=== PATIENT | female | born 1995 | race Caucasian/White ===

== ENCOUNTER 2019-01-02 16:32 | Outpatient (CLI) | payer MEDICAID ==
[2019-01-02 17:53] LABS: ADD UMIC NO; UR ASCORBIC ACID NEGATIVE (NEGATIVE); UR BILIRUBIN (Dip) NEGATIVE (NEGATIVE); UR BLOOD (Dip) NEGATIVE (NEGATIVE); UR CLARITY SLIGHTLY CLOUDY (CLEAR); UR COLOR YELLOW (YELLOW); UR GLUCOSE (Dip) NEGATIVE (NEGATIVE); UR KETONES (Dip) NEGATIVE (NEGATIVE); UR LEUKOCYTE ESTERASE (Dip) NEGATIVE Leu/ul (NEGATIVE); UR NITRITE (Dip) NEGATIVE (NEGATIVE); UR RBC 0 /HPF (0-5); UR SPECIFIC GRAVITY (Dip) 1.015 (1.003-1.030); UR SQUAMOUS EPITHELIAL CELL MODERATE /HPF (FEW); UR TOTAL PROTEIN (Dip) NEGATIVE (NEGATIVE); UR UROBILINOGEN (Dip) NEGATIVE (NEGATIVE); UR WBC 0 /HPF (0-5)
== END 2019-01-02 18:10 | disposition home or self-care (01) ==
LOC: OBT 16:32 → L-D 16:34 → OBT 18:10
DX: O62.9 Abnormality of forces of labor, unspecified (principal); Z3A.35 35 weeks gestation of pregnancy
CPT/HCPCS: 76815; 76818; 81001; 81003

== ENCOUNTER 2019-01-24 19:42 | Inpatient (IN) | payer OTHER, MEDICAID ==
[2019-01-24] MEDS ORDERED: BUTORPHANOL 2 MG INJ IV (21:30)
[2019-01-24] MEDS ORDERED: IBUPROFEN 600 MG TAB PO (21:30)
[2019-01-24] MEDS ORDERED: OXYTOCIN 30 UNITS/LR 500 ML IV ×2 (21:30)
[2019-01-24] MEDS ORDERED: METHYLERGONOVINE 0.2 MG INJ IM (21:30)
[2019-01-24] MEDS ORDERED: MISOPROSTOL 200 MCG TAB PR (21:30)
[2019-01-24] MEDS ORDERED: CARBOPROST 250 MCG INJ IM (21:30)
[2019-01-25] MEDS: LACTATED RINGER'S 1,000 ML IV ×5 (00:01→18:32)
[2019-01-25 01:01] LABS: ADD MAN DIFF? NO
[2019-01-25 01:09] LABS: BASOPHILS % 0.3 % (0.0-2.0); EOSINOPHILS # 0.1 10^3/ul (0.0-0.5); HEMATOCRIT 25.4 % (37.0-47.0); HEMOGLOBIN 9.1 g/dl (12.0-16.0); LYMPHOCYTES % 18.8 % (15.0-51.0); MEAN CORPUSCULAR HEMOGLOBIN 32.3 pg (29.0-33.0); MEAN CORPUSCULAR HGB CONC 35.8 g/dl (32.0-37.0); MEAN CORPUSCULAR VOLUME 90.1 fl (82.0-101.0); MEAN PLATELET VOLUME 10.5 fl (7.4-10.4); MONOCYTE # 0.6 10^3/ul (0.3-0.9); MONOCYTES % 5.4 % (0.0-11.0); NEUTROPHILS % 73.9 % (39.0-77.0); PLATELET COUNT 269 10^3/UL (140-415); RED BLOOD COUNT 2.82 10^6/ul (4.20-5.40); RED CELL DISTRIBUTION WIDTH 14.6 % (11.5-14.5)
[2019-01-25 01:09] LABS: WHITE BLOOD COUNT 10.8 10^3/ul (4.8-10.8)
[2019-01-25 01:27] LABS: INR 0.81; PROTIME 11.3 Sec (11.9-14.9); PT RATIO 0.9
[2019-01-25 01:28] LABS: PARTIAL THROMBOPLASTIN TIME 26.3 Sec (23.0-35.0)
[2019-01-25] MEDS: AMPICILLIN 2 GM/NS (PMX) 100 ML IV (03:27)
[2019-01-25] MEDS ORDERED: OXYTOCIN 30 UNITS/LR 500 ML IV (03:30)
[2019-01-25 04:09] LABS: HEPATITIS B SURFACE ANTIGEN NEGATIVE (NEGATIVE)
[2019-01-25] MEDS: AMPICILLIN 1 GM/NS (PMX) 50 ML IV ×5 (07:17→23:56)
[2019-01-25] MEDS: OXYTOCIN 30 UNITS/LR 500 ML IV (07:19)
[2019-01-25] MEDS ORDERED: KETOROLAC 30 MG INJ IV (17:00)
[2019-01-25] MEDS ORDERED: NALOXONE (0.4 MG/ML) INJ IV (17:00)
[2019-01-25] MEDS ORDERED: HYDROmorphONE 0.5 MG/0.5 ML SYG IV ×2 (17:00)
[2019-01-25] MEDS ORDERED: DIPHENHYDRAMINE 50 MG INJ IV (17:00)
[2019-01-25] MEDS ORDERED: ZOLPIDEM 5 MG TAB PO (17:00)
[2019-01-25] MEDS: FENTAnyl 2MCG/ML-ROPIV 0.2% 100 ML BAG EPI ×2 (19:40→23:56)
[2019-01-25] MEDS: ONDANSETRON 4 MG INJ IV (19:52)
[2019-01-25 20:43] LABS: RAPID PLASMA REAGIN NONREACTIVE (NR)
[2019-01-26] MEDS: LACTATED RINGER'S 1,000 ML IV ×3 (03:17→21:55)
[2019-01-26] MEDS: OXYTOCIN 30 UNITS/LR 500 ML IV ×2 (03:36→18:41)
[2019-01-26] MEDS: AMPICILLIN 1 GM/NS (PMX) 50 ML IV ×4 (03:44→15:27)
[2019-01-26] MEDS: FENTAnyl 2MCG/ML-ROPIV 0.2% 100 ML BAG EPI ×2 (07:34→14:38)
[2019-01-26] MEDS: ONDANSETRON 4 MG INJ IV (14:32)
[2019-01-26] MEDS: FAMOTIDINE 20 MG INJ IV (17:00)
[2019-01-26] MEDS: AL HYDROX/MG HYDROX/SIMETH 30 ML CUP PO (17:01)
[2019-01-26] MEDS: LIDOCAINE 1% (MPF) 30 ML INJ INJ (17:21)
[2019-01-26] MEDS: IBUPROFEN 600 MG TAB PO ×3 (18:41→23:34)
[2019-01-26] MEDS ORDERED: OXYCODONE/ASPIRIN (4.88/325) TAB PO ×2 (20:30)
[2019-01-26] MEDS ORDERED: METHYLERGONOVINE 0.2 MG INJ IM (20:30)
[2019-01-26] MEDS ORDERED: MISOPROSTOL 200 MCG TAB PR (20:30)
[2019-01-26] MEDS ORDERED: OXYTOCIN 30 UNITS/LR 500 ML IV (20:30)
[2019-01-26] MEDS ORDERED: LANOLIN HPA 1 PKT TOP (20:30)
[2019-01-26] MEDS ORDERED: ZOLPIDEM 5 MG TAB PO (20:30)
[2019-01-26] MEDS ORDERED: CARBOPROST 250 MCG INJ IM (20:30)
[2019-01-26] MEDS: SENNA/DOCUSATE NA (8.6MG/50MG) TAB PO (21:06)
[2019-01-26] MEDS: BENZOCAINE 20% 56 ML SPRAY TOP (21:08)
[2019-01-26] MEDS: WITCH HAZEL/GLYCERIN PAD PR (21:08)
[2019-01-27 05:09] LABS: ADD MAN DIFF? NO
[2019-01-27 05:10] LABS: BASOPHILS % 0.2 % (0.0-2.0); EOSINOPHILS # 0.1 10^3/ul (0.0-0.5); EOSINOPHILS % 0.4 % (0.0-7.0); HEMATOCRIT 25.3 % (37.0-47.0); HEMOGLOBIN 8.6 g/dl (12.0-16.0); LYMPHOCYTES # 2.7 10^3/ul (0.8-2.9); LYMPHOCYTES % 17.3 % (15.0-51.0); MEAN CORPUSCULAR HEMOGLOBIN 29.9 pg (29.0-33.0); MEAN CORPUSCULAR VOLUME 87.8 fl (82.0-101.0); MEAN PLATELET VOLUME 10.6 fl (7.4-10.4); MONOCYTE # 1.2 10^3/ul (0.3-0.9); MONOCYTES % 7.3 % (0.0-11.0); NEUTROPHIL # 11.8 10^3/ul (1.6-7.5); PLATELET COUNT 234 10^3/UL (140-415); RED BLOOD COUNT 2.88 10^6/ul (4.20-5.40); RED CELL DISTRIBUTION WIDTH 13.5 % (11.5-14.5)
[2019-01-27 05:10] LABS: WHITE BLOOD COUNT 15.9 10^3/ul (4.8-10.8)
[2019-01-27] MEDS: IBUPROFEN 600 MG TAB PO ×3 (05:46→18:39)
[2019-01-27] MEDS: LACTATED RINGER'S 1,000 ML IV (06:00)
[2019-01-27] MEDS: SENNA/DOCUSATE NA (8.6MG/50MG) TAB PO ×2 (09:57→20:48)
[2019-01-27] MEDS ORDERED: LACTATED RINGER'S 1,000 ML IV (21:30)
[2019-01-28] MEDS: IBUPROFEN 600 MG TAB PO ×3 (00:07→11:56)
[2019-01-28] MEDS: DIPHTH/TET/ACEL PERTUSS (ADULT) 0.5 ML VIAL IM* (09:32)
[2019-01-28] MEDS: SENNA/DOCUSATE NA (8.6MG/50MG) TAB PO (09:32)
== END 2019-01-28 15:06 | disposition home or self-care (01) | DRG 807 ==
LOC: OBT 19:42 → MS1 01-26 18:45 → L-D 19:43 → OBT 20:50 → L-D 20:50
PROVIDERS: Obstetrics & Gynecology
PROC: 10E0XZZ Delivery of Products of Conception, External Approach (ICD-10-PCS; principal; 2019-01-26)
PROC: 0W8NXZZ Division of Female Perineum, External Approach (ICD-10-PCS; 2019-01-26)
DX: O80 Encounter for full-term uncomplicated delivery (principal); Z37.0 Single live birth; Z3A.38 38 weeks gestation of pregnancy
CPT/HCPCS: 62322; 76815; 85025; 85610; 85730; 86592; 86850; 86900; 86901; 87340; 90715

== ENCOUNTER 2019-04-09 11:39 | Emergency (ER) | payer OTHER ==
[2019-04-09 12:05] LABS: ADD MAN DIFF? NO
[2019-04-09 12:10] LABS: WHITE BLOOD COUNT 13.2 10^3/ul (4.8-10.8)
[2019-04-09 12:10] LABS: ABNORMAL IP MESSAGE 1; BASOPHILS % 0.2 % (0.0-2.0); EOSINOPHILS % 0.1 % (0.0-7.0); HEMATOCRIT 36.4 % (37.0-47.0); LYMPHOCYTES # 0.6 10^3/ul (0.8-2.9); LYMPHOCYTES % 4.2 % (15.0-51.0); MEAN CORPUSCULAR HEMOGLOBIN 27.5 pg (29.0-33.0); MEAN CORPUSCULAR VOLUME 83.3 fl (82.0-101.0); MEAN PLATELET VOLUME 10.2 fl (7.4-10.4); MONOCYTE # 0.5 10^3/ul (0.3-0.9); MONOCYTES % 3.4 % (0.0-11.0); NEUTROPHIL # 12.1 10^3/ul (1.6-7.5); NEUTROPHILS % 91.3 % (39.0-77.0); PLATELET COUNT 233 10^3/UL (140-415); RED BLOOD COUNT 4.37 10^6/ul (4.20-5.40); RED CELL DISTRIBUTION WIDTH 16.7 % (11.5-14.5)
[2019-04-09 12:11] LABS: POSITIVE DIFF @See below
[2019-04-09] MEDS: morphine 4 MG/ML VIAL IV (12:14)
[2019-04-09] MEDS: ONDANSETRON 4 MG INJ IV ×2 (12:15→14:12)
[2019-04-09] MEDS: PIPER-TAZO 3.375 GM IV (PMX) 100 ML IVPB (12:15)
[2019-04-09] MEDS: ACETAMINOPHEN 325 MG TAB PO (12:16)
[2019-04-09] MEDS: SODIUM CHLORIDE 0.9% 1L BAG IV* (12:17)
[2019-04-09 12:22] LABS: INR 0.88; PT RATIO 0.9
[2019-04-09 12:23] LABS: ALANINE AMINOTRANSFERASE 20 IU/L (13-69); ALBUMIN 4.6 g/dl (3.3-4.9); ALBUMIN/GLOBULIN RATIO 1.76; ALKALINE PHOSPHATASE 115 IU/L (42-121); AMYLASE 97 U/L (11-123); ANION GAP 12 (5-13); ASPARTATE AMINO TRANSFERASE 21 IU/L (15-46); BILIRUBIN,INDIRECT 1.3 mg/dl (0-1.1); BILIRUBIN,TOTAL 1.3 mg/dl (0.2-1.3); BLOOD UREA NITROGEN 14 mg/dl (7-20); CALCIUM 9.6 mg/dl (8.4-10.2); CARBON DIOXIDE 22 mmol/L (21-31); CHLORIDE 106 mmol/L (97-110); CREATININE 0.59 mg/dl (0.44-1.00); Estimated GFR > 60 mL/min (>60); GLUCOSE 102 mg/dl (70-220); LIPASE 88 U/L (23-300); PARTIAL THROMBOPLASTIN TIME 25.8 Sec (23.0-35.0); POTASSIUM 3.6 mmol/L (3.5-5.1); SODIUM 140 mmol/L (135-144); TOTAL PROTEIN 7.2 g/dl (6.1-8.1)
[2019-04-09 12:35] LABS: TROPONIN-I < 0.012 ng/ml (0.000-0.120)
[2019-04-09] MEDS ORDERED: SOD CHLORIDE 0.9% 100 ML (12:55)
[2019-04-09] MEDS ORDERED: IOHEXOL 300MG/ML 150 ML BTL (12:55)
[2019-04-09] MEDS: DICYCLOMINE 10 MG CAP PO (14:11)
[2019-04-09] MEDS: KETOROLAC 30 MG INJ IV (14:12)
[2019-04-09 14:15] LABS: LACTIC ACID 0.8 mmol/L (0.5-2.0)
== END 2019-04-09 14:50 | disposition home or self-care (01) ==
LOC: E/R 11:39
DX: R11.2 Nausea with vomiting, unspecified (principal); R19.7 Diarrhea, unspecified
CPT/HCPCS: 36415; 71045; 74177; 80053; 82150; 83605; 83690; 84484; 84703; 85025; 85610; 85730; 87040-91; 93005; 96365; 96375; 96376; 99285-25